=== PATIENT | female | born 1975 | race African-American/Black ===

== ENCOUNTER 2018-08-15 17:37 | Emergency (ER) | payer BC ==
[~2018-08-15] VITALS: Ht 180.3 cm; Wt 86.2 kg
[2018-08-15 18:08] VITALS: BP 123/82
[2018-08-15] MEDS ORDERED: Tetanus/Diptheria/Pertussis Vaccine 0.5ml Syr IM ONE (18:15)
[2018-08-15] MEDS ORDERED: Bacitracin Oint UD TOPIC ONE (18:30)
[2018-08-15] MEDS ORDERED: Lidocaine 1% MPF 10mg/ml 5ml IM ONE (18:30)
--- NOTE | 2018-08-15 18:55 | Emergency Room Report ---
History of Present Illness General Chief Complaint: Laceration Source: Patient Present Illness HPI 33-year-old female presents to the emergency department complaining of laceration to the right hand times one hour. She states she was cleaning out a glass when it cracked and cut the side of her right hand. Patient states that she is right-hand dominant. Pt. denies pain at this time. Denies taking blood thinning medications and states that she does not know when her last tetanus vaccination was.Denies numbness tingling or loss of sensation or gross motor movements of the extremities, incontinence of bowel or bladder. Denies CP, Palpitations, LOC, AMS, dizziness, Changes in Vision, weakness or a sudden severe headache. Patient denies suspicion of retained foreign bodies in the wound. Allergies: Coded Allergies: No Known Allergies (Unverified , 08/15/18) Patient History Past Medical History: see triage record Past Surgical History: none Pertinent Family History: none Now: No Reviewed Nursing Documentation: PMH: Agreed; PSxH: Agreed Nursing Documentation-PMH Past Medical History: No Stated History Review of Systems All Other Systems: negative except mentioned in HPI Physical Exam Vital Signs Date Time Temp Pulse Resp B/P (MAP) Pulse Ox O2 Delivery O2 Flow Rate FiO2 08/15/18 18:08 98.2 64 18 123/82 97 Room Air Sp02 EP Interpretation: reviewed, normal General Appearance: no apparent distress, alert, GCS 15, non-toxic Head: normocephalic, atraumatic Eyes: bilateral eye normal inspection, bilateral eye PERRL ENT: hearing grossly normal, normal voice Neck: full range of motion Respiratory: lungs clear, normal breath sounds, speaking full sentences Cardiovascular #1: regular rate, rhythm, normal capillary refill Musculoskeletal: back normal, gait/station normal, normal range of motion, non- tender Neurologic: alert, oriented x3, responsive, motor strength/tone normal, sensory intact, speech normal, grossly normal Psychiatric: judgement/insight normal Skin: normal color, no rash, warm/dry, well hydrated, laceration - laceration to the alteral aspect of the right hand. approx 2 cm in length Lymphatic: no adenopathy Procedures Laceration/Wound Repair Laceration/Wound Repair : Consent: Verbal Wound Location: lower extremity - right hand Wound's Depth, Shape: linear Wound Length (cm): 2 Wound Explored: clean Anesthesia: 1% Lidocaine Volume Anesthetic (ccs): 2 Wound Repaired With: sutures Suture Size/Type: 4:0 Number of Sutures: 4 Layer Closure?: No Sterile Dressing Applied?: Yes Splint Applied?: Yes - right finger splint. Sling Applied?: No Patient Tolerated: Well Complications: None Medical Decision Making PA Attestation Dr. Jensen is my supervising Physician whom patient management has been discussed with. Diagnostic Impression: Primary Impression: Laceration ER Course 33-year-old female presents to the emergency department complaining of laceration to the right hand times one hour. She states she was cleaning out a glass when it cracked and cut the side of her right hand. Patient states that she is right-hand dominant. Pt. denies pain at this time. Denies taking blood thinning medications and states that she does not know when her last tetanus vaccination was.Denies numbness tingling or loss of sensation or gross motor movements of the extremities, incontinence of bowel or bladder. Denies CP, Palpitations, LOC, AMS, dizziness, Changes in Vision, weakness or a sudden severe headache. Patient denies suspicion of retained foreign bodies in the wound. Ddx considered but are not limited to laceration, tendon injury, cellulitis, amputation Vital signs: are WNL, pt. is afebrile H&PE are most consistent with: Right hand linear laceration approx 2 cm in length ORDERS: none required at this time, the diagnosis is clinical ED INTERVENTIONS: -Tetanus vaccine was administered as pt. vaccination status was unknown. - The wound was copiously irrigated with normal saline, and explored for foreign body for which no FB was found. - pt. is anesthetized with 1%lidocaine - The wound was approximated and closed using 3 interrupted 4.0 Ethilon sutures. -Bacitracin and sterile dressing is applied. Finger Splint applied to the 5th digit extending down the palm/hand by nuclear medicine tech. Pt. remains neurovascularly intact. Discussed with patient: That we make every effort to approximate the laceration as best as we can so that scarring will be as cosmetically pleasing as possible with our limited cosmetic skill set in the Emergency dept. Regardless of our best efforts there will be scarring after laceration repair. The extent of scarring is unknown at this time. DISCHARGE: At this time pt. is stable for d/c to home. Will provide printed patient care instructions, and any necessary prescriptions. Care plan and follow up instructions have been discussed with the patient prior to discharge. Last Vital Signs Date Time Temp Pulse Resp B/P (MAP) Pulse Ox O2 Delivery O2 Flow Rate FiO2 08/15/18 18:08 98.2 64 18 123/82 97 Room Air Disposition: HOME, SELF-CARE Condition: Stable Scripts Bacitracin/Polymyxin B Sulfate (BACITRACIN-POLYMYXIN OINTMENT) 28.35 Gm Oint...g. 1 APPLIC TP BID, #28.3 GM Prov: Shilpi Boyer 08/15/18 Patient Instructions: Laceration Care, Adult Additional Instructions: Take medications as directed. Follow up with a Primary Care Provider in 3-5 days, even if your symptoms have resolved. --Please review list of primary care clinics, if you do not already have a primary care provider Return sooner to ED if new symptoms occur, or current symptoms become worse. - Please note that this Emergency Department Report was dictated using [employer] secretary/transcriptionist technology software, occasionally this can lead to erroneous entry secondary to interpretation by the dictation equipment. Shilpi Boyer Aug 15, 2018 18:55
[2018-08-15] MEDS ORDERED: BACITRACIN-P28.35 GM TP (18:56)
[2018-08-15 19:10] VITALS: BP 125/80
== END 2018-08-15 19:30 | disposition home or self-care (01) ==
LOC: EMR 19:10
DX: S61.411A Laceration without foreign body of right hand, initial encounter (principal); W25.XXXA Contact with sharp glass, initial encounter; Y93.G1 Activity, food preparation and clean up; Y92.9 Unspecified place or not applicable; Z23 Encounter for immunization
CPT/HCPCS: 29130; 90471; 90715; 99283